=== PATIENT | female | born 1955 | race American Indian/Alaskan Native ===

== ENCOUNTER 2017-05-27 13:03 | Emergency (ER) | payer SELFPAY ==
[2017-05-27 13:46] VITALS: BP 190/112
[2017-05-27 14:21] LABS: Bilirubin,Urine NEG (Negative); Blood,Urine NEG (Negative); Ketones,Urine NEG (Negative); Leukocyte Esterase,Urine LG (Negative); Nitrite,Urine NEG (Negative); Urobilinogen,Urine < 2.0 mg/dL (<2.0)
[2017-05-27 15:12] LABS: Basophils % (Auto) 0.5 % (0.0-1.8); Eosinophils % (Auto) 3.7 % (0.0-4.3); Hematocrit 37.4 % (30.3-42.9); Hemoglobin 12.4 gm/dl (10.1-14.3); Mean Corpuscular HGB Conc 33 % (30-34); Mean Corpuscular Hemoglobin 31 pg (28-32); Mean Corpuscular Volume 94 fl (79-97); Platelet Count 246 K/mm3 (140-440); Red Cell Distribution Width 13.7 % (13.2-15.2); White Blood Count 6.2 K/mm3 (4.5-11.0)
[2017-05-27 15:32] LABS: Alanine Aminotransferase 14 units/L (7-56); Albumin 4.3 g/dL (3.9-5); Albumin/Globulin Ratio 1.3 %; Alkaline Phosphatase 93 units/L (35-129); Anion Gap 18 mmol/L; BUN/Creatinine Ratio 23.33; Blood Urea Nitrogen 21 mg/dL (7-17); Calcium 9.1 mg/dL (8.4-10.2); Carbon Dioxide 26 mmol/L (22-30); Chloride 103.4 mmol/L (98-107); Glucose 97 mg/dL (65-100); Lipase 32 units/L (13-60); Potassium 4.3 mmol/L (3.6-5.0); Sodium 143 mmol/L (137-145); Total Protein 7.5 g/dL (6.3-8.2)
--- NOTE | 2017-05-27 15:34 | Cat Scan Report ---
CT HEAD WITHOUT CONTRAST: HISTORY: Dizziness, headache. Serial contiguous axial images were obtained through the cranium. Intravenous contrast material was not administered. The ventricles are normal in size and appearance. There is no mass effect or midline shift. No areas of abnormally increased or decreased attenuation are seen. No mass lesion is seen. There are mild nonspecific chronic white matter changes bilaterally. No chronic infarct. The mastoid air cells and visualized portions of the sinuses are normal. IMPRESSION: Nonspecific chronic white matter changes. No acute intracranial process.
--- NOTE | 2017-06-01 13:18 | ED Elopement Review ---
ED Pt Elopement review - Results review Lab results: Laboratory Tests 05/27/17 05/27/17 05/27/17 14:57 14:57 Unknown WBC 6.2 RBC 4.00 Hgb 12.4 Hct 37.4 MCV 94 MCH 31 MCHC 33 RDW 13.7 Plt Count 246 Lymph % (Auto) 40.2 H [place] % (Auto) 8.0 H Eos % (Auto) 3.7 Baso % (Auto) 0.5 Lymph # 2.5 [place] # 0.5 Eos # 0.2 Baso # 0.0 Seg Neutrophils % 47.6 Seg Neutrophils # 2.9 Sodium 143 Potassium 4.3 Chloride 103.4 Carbon Dioxide 26 Anion Gap 18 BUN 21 H Creatinine 0.9 Estimated GFR > 60 BUN/Creatinine Ratio 23.33 Glucose 97 Calcium 9.1 Total Bilirubin 0.40 AST 18 ALT 14 Alkaline Phosphatase 93 Total Protein 7.5 Albumin 4.3 Albumin/Globulin Ratio 1.3 Lipase 32 Urine Color Yellow Urine Turbidity Cloudy Urine pH 5.0 Ur Specific [place] 1.019 Urine Protein 30 mg/dl Urine Glucose (UA) Neg Urine Ketones Neg Urine Blood Neg Urine Nitrite Neg Urine Bilirubin Neg Urine Urobilinogen < 2.0 Ur Leukocyte Esterase Lg Urine WBC (Auto) 1.0 Urine RBC (Auto) 1.0 U Epithel Cells (Auto) < 1.0 - Call Back decision Pt Call Back Decision: No action required
== END 2017-05-27 21:40 | disposition left against medical advice (07) ==
LOC: ED 13:03
DX: Z53.21 Procedure and treatment not carried out due to patient leaving prior to being seen by health care provider (principal)
CPT/HCPCS: 36415; 70450; 80053; 81001; 83690; 85025; 93005; 93010